=== PATIENT | female | born 1955 | race Caucasian/White ===

== ENCOUNTER 2020-11-03 10:50 | Emergency (ER) | payer OTHER ==
[~2020-11-03 10:50] MED LIST: EFFEXOR XR150 MG PO; NORCO 5-325 TA1 EACH PO; PHENERGAN25 M1 PO
[2020-11-03] MEDS ORDERED: NORCO 5-325 TA1 EACH PO ×2 (11:26→11:30)
[2020-11-03] MEDS ORDERED: NEURONTIN100 MG PO (11:26)
[2020-11-03] MEDS ORDERED: NEURONTIN300 MG PO (11:30)
== END 2020-11-03 11:38 | disposition home or self-care (01) ==
LOC: FER 10:50
DX: B02.8 Zoster with other complications (principal); F17.210 Nicotine dependence, cigarettes, uncomplicated
CPT/HCPCS: 99282

== ENCOUNTER 2021-12-22 18:04 | Emergency (ER) | payer MEDICARE ==
[~2021-12-22 18:04] MED LIST changes: +NEURONTIN100 MG PO; +NEURONTIN300 MG PO
[2021-12-22 18:47] LABS: BASOPHIL 0.9 % (0-2); EOSINOPHIL 1.5 % (0-7); HCT 40.1 % (37.0-47.0); HGB 13.4 g/dl (12.5-16.0); LYMPHOCYTE 34.7 % (15-48); MCH 31.8 pg (25.0-31.0); MCHC 33.4 g/dL (32.0-36.0); MONOCYTE 8.2 % (0-12); MPV 9.4 fL (6.0-9.5); NEUTROPHIL 54.6 % (41-80); NRBC 0; PLT 324 K/uL (150-400); RBC 4.22 M/uL (4.20-5.40); RDW 12.9 % (11.5-14.0); WBC 6.7 K/uL (4.0-10.5)
[2021-12-22 19:06] LABS: ALBUMIN 3.6 g/dL (3.4-5.0); BILIRUBIN - TOTAL 0.1 mg/dL (0.2-1.0); CREATININE 0.8 mg/dL (0.51-0.95); GLOBULIN (CALCULATION) 3.5 g/dL; POTASSIUM 4.3 mmol/L (3.5-5.1); TOTAL PROTEIN 7.1 g/dL (6.4-8.2)
== END 2021-12-22 19:42 | disposition home or self-care (01) ==
LOC: FER 18:04
PROVIDERS: Emergency Medicine
DX: S80.12XA Contusion of left lower leg, initial encounter (principal); S80.11XA Contusion of right lower leg, initial encounter
CPT/HCPCS: 36415; 80053; 85025; 99283